=== PATIENT | female | born 1945 | race Caucasian/White ===

== ENCOUNTER 2017-07-21 19:57 | Inpatient (IN) | payer MEDICARE, MEDICAID ==
[~2017-07-21] VITALS: Ht 167.6 cm; Wt 71.2 kg
[2017-07-21] MEDS: HALOPERIDOL LACTATE INJ 5 MG/ML VIAL IM ONE (20:00)
[2017-07-21] MEDS: LORAZEPAM INJ 2 MG/ML VIAL IM ONE (20:00)
[2017-07-21] MEDS: diphenhydrAMINE HCL 50 MG/ML VIAL IM ONE (20:00)
--- NOTE | 2017-07-21 20:05 | NUR ---
PT BIB [employer], PT PLACED ON A 5150 HOLD FOR GRAVELY DISABLED, NAD NOTED, VSS, RESP EVEN AND UNLABORED. WAITING FOR MD JENSEN.
[2017-07-21 20:30] LABS: BASOPHILS % (AUTO) 0.5 % (0.0-2.0); EOSINOPHILS # (AUTO) 0.1 /CMM (0.0-0.7); EOSINOPHILS % (AUTO) 0.8 % (0.0-6.0); HEMATOCRIT 39 % (33-45); HEMOGLOBIN 13.3 g/dL (11.5-14.8); LYMPHOCYTES # (AUTO) 1.5 /CMM (0.8-4.8); LYMPHOCYTES % (AUTO) 15.2 % (20.0-44.0); MEAN CORPUSCULAR HEMOGLOBIN 30 PG (26.0-33.0); MEAN CORPUSCULAR HGB CONC 35 g/dl (31.0-36.0); MEAN CORPUSCULAR VOLUME 88 fL (82-100); MONOCYTES # (AUTO) 0.5 /CMM (0.1-1.30); MONOCYTES % (AUTO) 5.3 % (2.0-12.0); NEUTROPHILS # (AUTO) 7.8 /CMM (1.8-8.9); NEUTROPHILS % (AUTO) 78.2 % (43.0-81.0); PLATELET COUNT (AUTO) 324 /CMM (150-450); RDW COEFFICIENT OF VARIATION 12.6 (11.5-15.0); RED BLOOD CELL COUNT(AUTO) 4.38 MIL/uL (4.0-5.2); WHITE BLOOD COUNT (AUTO) 9.9 K/uL (4.3-11.0)
[2017-07-21 20:49] LABS: CALCIUM, SERUM 9.3 mg/dL (8.5-10.1); CARBON DIOXIDE 26 mmol/L (21-32); CHLORIDE 96 mmol/L (98-107); CREATININE 0.8 mg/dL (0.6-1.3); GLUCOSE 103 mg/dL (74-106); POTASSIUM 4.2 mmol/L (3.5-5.1); SODIUM SERUM 131 mmol/L (136-145); UREA NITROGEN, BLOOD 13 mg/dL (7-18)
[2017-07-21 20:55] LABS: ALANINE AMINOTRANSFERASE 30 U/L (12-78); ALBUMIN 3.8 g/dL (3.4-5.0); ALCOHOL, BLOOD < 3 mg/dL (0-0); ALKALINE PHOSPHATASE 76 U/L (46-116); ASPARTATE AMINOTRANSFERASE 38 U/L (15-37); BILIRUBIN,DIRECT 0.2 mg/dL (0.0-0.2); TOTAL PROTEIN, SERUM 7.2 g/dL (6.4-8.2)
[2017-07-21 20:56] LABS: TROPONIN I 0.026 ng/mL (0.00-0.056)
--- NOTE | 2017-07-21 20:56 | NUR ---
CALLED NURSING SUP. FOR GPS BED
[2017-07-21 21:03] LABS: THYROID STIMULATING HORMONE 0.825 uIU/mL (0.358-3.74)
--- NOTE | 2017-07-21 21:08 | NUR ---
PT REFUSED THE EKG, AWARE
--- NOTE | 2017-07-21 21:08 | NUR ---
PT UNABLE TO URINATE AT THIS MOMENT WILL TRY AGAIN IN 10 MINS.
--- NOTE | 2017-07-21 21:43 | NUR ---
UNABLE TO OBTAIN URINE SAMPLE, AWARE
--- NOTE | 2017-07-21 21:48 | NUR ---
REPORT GIVEN TO ALICE.
[2017-07-21 22:00] VITALS: BP 152/64
[2017-07-21] MEDS ORDERED: MAG HYDROX/AL HYDROX/SIMETH 30 ML UDC PO PRN (22:30)
[2017-07-21] MEDS ORDERED: MAGNESIUM HYDROXIDE 30 ML UDC PO PRN (22:30)
[2017-07-22] MEDS ORDERED: LEVE500T9 PO (00:20)
[2017-07-22] MEDS ORDERED: IBUP-1953 PO (00:20)
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
[2017-07-22 06:39] VITALS: BP 152/64
[2017-07-22 08:00] VITALS: BP 146/74
[2017-07-22] MEDS: LEVETIRACETAM (250 MG) 250 MG TABLET PO SCH ×3 (09:00→21:00)
--- NOTE | 2017-07-22 09:00 | NUR ---
rn notes patient a/o x 2, get irritable easily, has a disorganized thoughts, refused scheduled seizure medication, per patient medication which is administered not a Keppra, offered x3, dr Sierra aware of, continued monitoring.
--- NOTE | 2017-07-22 10:00 | NUR ---
RN NOTES PATIENT REFUSED ZYPREXA PRESCRIBED. PATIENT A/O X1/2, CONFUSED, DISORGANIZED THOUGHTS, IRRITABLE, CALL [facility]EDA NEAR TO REACH, SAFETY PRECAUTION MAINTAINED ALL THE TIME.
[2017-07-22] MEDS: OLANZAPINE 5 MG/TAB.RAPDIS PO SCH (10:30)
--- NOTE | 2017-07-22 16:03 | NUR ---
Initial Discharge Plan: Per psych evaluation pt was living in a facility 3 weeks ago and abruptly left. Pt is currently homeless. Pt does not have a architectural draftsperson to notify on face sheet and or telephone #. When asked pt denied having any support person to contact. SW will continue to discuss placement options with pt throughout her stay at [facility]. SW will ensure pt is safely and properly discharged.
[2017-07-22 16:26] VITALS: BP 156/82
--- NOTE | 2017-07-22 18:50 | NUR ---
RN NOTES PATIENT VERY ANXIOUS, PARANOID, HARD TO FOLLOW DIRECTION, YELLING, DISORGANIZED, UNKEMPT, TALKING SELF, WALKING BACK AND FORTH IN THE HALLWAY. REFUSED SCHEDULED MEDICATION. MEDICATION , CALLED DR GAINES AND LEFT MASSAGE , WAITING FOR RESPOND. CONTINUED MONITORING.
--- NOTE | 2017-07-22 19:15 | NUR ---
RN NOTES GET CALL BACK FROM Dr. GAINES NOTIFIED PATIENT CONDITION, AND GET ORDER ATIVAN 1 MG /ML IM, HALDOL 2.5 MG/ML IM, AND BENADRYL 25 MG/ML IM X1 NOW ORDER TAKEN AND CARRIED OUT.
--- NOTE | 2017-07-22 19:26 | NUR ---
RN NOTES PATIENT QUIET AT TIS TIME, ENDORSED ONCOMING NURSE AND CHARGE NURSE FOR SOWMYA.
--- NOTE | 2017-07-22 19:40 | NUR ---
GPS RN NOTE: PATIENT SITTING UP IN CHAIR IN ACTIVITIES ROOM. EASILY IRRITABLE. WILL CONTINUE TO MONITOR.
[2017-07-22] MEDS: LORAZEPAM INJ 2 MG/ML VIAL IM ONE (20:00)
[2017-07-22] MEDS: HALOPERIDOL LACTATE INJ 5 MG/ML VIAL IM ONE (20:00)
[2017-07-22] MEDS: diphenhydrAMINE HCL 50 MG/ML VIAL IM ONE (20:00)
--- NOTE | 2017-07-22 21:00 | NUR ---
GPS RN NOTE: PATIENT NOT AGITATED OR ANXIOUS AT THIS TIME. HADOLOL 2.5 IM, BENADRYL 25 MG IM, AND ATIVAN 1MG IM ORDERED. WILL CONTINUE TO MONITOR.
--- NOTE | 2017-07-22 22:00 | NUR ---
GPS RN NOTE: PATIENT REFUSED EVENING SCHEDULE MEDICATIONS. EXPLAINED RISK AND BENEFITS, BUT CONTINUES TO REFUSE. WILL CONTINUE TO MONITOR.
[2017-07-23] MEDS: IBUPROFEN 400 MG TABLET PO PRN (03:03)
[2017-07-23] MEDS: clonazePAM 0.5 MG TABLET PO PRN (03:03)
--- NOTE | 2017-07-23 03:15 | NUR ---
GPS RN NOTE: PATIENT ANXIOUS, KLONOPIN 0.5MG ORAL GIVEN PER MD ORDER. WILL CONTINUE TO MONITOR.
[2017-07-23 08:00] VITALS: BP 159/75
[2017-07-23] MEDS: LEVETIRACETAM (250 MG) 250 MG TABLET PO SCH ×3 (08:41→21:11)
[2017-07-23] MEDS: OLANZAPINE 5 MG/TAB.RAPDIS PO SCH (08:41)
--- NOTE | 2017-07-23 09:00 | NUR ---
GPS/RN PATIENT ADAMANTLY REFUSED KEPPRA 500 MG AND ZYPREXA 5MG X 3, EXPLAINED RISKS AND BENEFITS, CONTINUES TO REFUSE, WILL CONTINUE TO ENCOURAGE TO COMPLY WITH MD REGIMEN.
[2017-07-23 16:00] VITALS: BP 163/88
[2017-07-23 20:00] VITALS: BP 152/78
[2017-07-24] MEDS: TEMAZEPAM 7.5 MG CAPSULE PO PRN (00:08)
[2017-07-24] MEDS: clonazePAM 0.5 MG TABLET PO PRN ×2 (00:31→13:40)
--- NOTE | 2017-07-24 00:31 | NUR ---
GPS/RN NOTES: PATIENT IS VERY ANXIOUS AND RESTLESS. VITAL SIGNS ARE STABLE. KLONOPIN 0.5MG PO GIVEN PRN ORDER. WILL CONTINUE TO MONITOR [id number] FOR SAFETY AND BEHAVIOR.
[2017-07-24 08:27] VITALS: BP 160/87
[2017-07-24] MEDS: OLANZAPINE 5 MG/TAB.RAPDIS PO SCH ×2 (09:00→13:40)
[2017-07-24] MEDS: LEVETIRACETAM (250 MG) 250 MG TABLET PO SCH ×2 (09:33→21:10)
--- NOTE | 2017-07-24 13:43 | NUR ---
NURSING NOTE PT WAS GIVEN CLONAZEPAM 0.5 MG FOR SEVERE AGITATION, PT ALSO AGREED TO TAKE ZYPREXA 5 MG NOW BUT DECLINED IT IN AM.
[2017-07-24 17:03] VITALS: BP 141/73
--- NOTE | 2017-07-24 17:50 | NUR ---
NURSING NOTE PT REQUESTED IBUPROFEN 600 MG PO FOR 01/20 BACK PAIN, OFFERED PT MEDICATION AND PT REFUSED TO TAKE IT, STATES "THAT'S NOT IBUPROFEN, YOU'RE LYING TO ME', PT IS DELUSIONAL, PARANOID, DISORGANIZED, CONFUSED, EASILY AGITATED. WILL CONTINUE TO MONITOR FOR SAFETY.
[2017-07-24 19:57] VITALS: BP 157/95
[2017-07-25] MEDS: clonazePAM 0.5 MG TABLET PO PRN (03:12)
--- NOTE | 2017-07-25 03:12 | NUR ---
GPS RN NOTES: PATIENT VERY AGITATED, CONFUSED, DISORGANIZED THOUGHTS, V/S ARE STABLE, ADMINISTERED KLONOPIN 0.5MG PO PRN ORDER. WILL CONTINUE TO MONITOR [id number] FOR SAFETY AND BEHAVIOR.
[2017-07-25 08:00] VITALS: BP 144/98
[2017-07-25] MEDS: LEVETIRACETAM (250 MG) 250 MG TABLET PO SCH ×2 (08:50→20:07)
--- NOTE | 2017-07-25 09:56 | NUR ---
Discharge Planning: SW attempted to meet with pt in order to discuss placement options once she is ready to discharge. Pt however was irate and and yelled at SW to get out. SW will attempt to engage pt in a conversation about placement during the week. SW will ensure pt is safely and adequately discharged.
[2017-07-25 16:00] VITALS: BP 145/91
[2017-07-25 19:55] VITALS: BP 160/73
[2017-07-25] MEDS: IBUPROFEN 400 MG TABLET PO PRN (20:13)
[2017-07-25] MEDS: TEMAZEPAM 7.5 MG CAPSULE PO PRN (23:16)
[2017-07-26] MEDS: ACETAMINOPHEN 325 MG TABLET PO PRN (02:03)
[2017-07-26] MEDS: clonazePAM 0.5 MG TABLET PO PRN ×3 (02:04→23:47)
[2017-07-26 08:00] VITALS: BP 130/62
[2017-07-26] MEDS: IBUPROFEN 400 MG TABLET PO PRN ×2 (09:00→21:38)
[2017-07-26] MEDS: LEVETIRACETAM (250 MG) 250 MG TABLET PO SCH ×2 (11:33→21:06)
[2017-07-26] MEDS: OLANZAPINE 5 MG/TAB.RAPDIS PO SCH (11:34)
[2017-07-26 16:00] VITALS: BP 150/79
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
[2017-07-26 20:36] VITALS: BP 153/62
[2017-07-26] MEDS: OLANZAPINE 2.5 MG TABLET PO SCH (21:06)
[2017-07-26] MEDS: TEMAZEPAM 7.5 MG CAPSULE PO PRN (21:25)
--- NOTE | 2017-07-26 21:38 | NUR ---
GPS RN NOTES: PATIENT C/O PAIN ON HER LEFT ANKLE, PATIENT RATES 7/10. ADMINISTERED MOTRIN 600MG PO PRN ORDER, WILL CONTINUE TO MONITOR AND ASSESS FOR PAIN.
--- NOTE | 2017-07-26 23:53 | NUR ---
GPS RN NOTES: PATIENT IS VERY ANXIOUS, AGITATED. VITAL SIGNS ARE STABLE. ADMINISTERED KLONOPIN 0.5MG PO PRN ORDER. WILL CONTINUE TO MONITOR [id number] FOR SAFETY AND BEHAVIOR.
[2017-07-27] MEDS: ACETAMINOPHEN 325 MG TABLET PO PRN (00:50)
[2017-07-27 08:00] VITALS: BP 140/78
[2017-07-27] MEDS: OLANZAPINE 5 MG/TAB.RAPDIS PO SCH ×2 (09:00→09:29)
[2017-07-27] MEDS: LEVETIRACETAM (250 MG) 250 MG TABLET PO SCH ×2 (09:22→21:34)
[2017-07-27] MEDS: IBUPROFEN 400 MG TABLET PO PRN (09:24)
--- NOTE | 2017-07-27 10:01 | NUR ---
Discharge Planning: NIRALI visited pt in her room to discuss placement options. Pt once again was irate and yelled at SW to get out. Pt also yelled, "I don't want you to send me anywhere." SW will follow up with pt and treating team to discuss placement options once she is discharged.
--- NOTE | 2017-07-27 12:38 | NUR ---
PATIENT STATES SHES IN PAIN. MOTRIN GIVEN
--- NOTE | 2017-07-27 15:52 | NUR ---
RN NOTE: PATIENT HAD BLOOD PRESSURE OF 189/106. CALLED [facility]OLOG[facility] FACULT[employer] MEMBER MAGDALENE BROWN AND NOTIFIED HIM OF THE BLOOD PRESSURE. KEVIN SAID HE WILL PUT THE ORDER IN FOR BP MED.
[2017-07-27 16:10] VITALS: BP 189/106
[2017-07-27] MEDS ORDERED: CLONIDINE HCL 0.1 MG TABLET PO PRN (17:00)
--- NOTE | 2017-07-27 17:00 | NUR ---
RN NOTE: PATIENT BP IS 189/106. CLONIDINE 0.1MG GIVEN
--- NOTE | 2017-07-27 17:09 | NUR ---
RN NOTE: PATIENT DENIED THE CLONIDINE. OFFERED 3X. PATIENT IS PARANOID AND THINKS THIS IS NOT THE BLOOD PRESSURE MEDICATION.
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
[2017-07-27] MEDS ORDERED: OLANZAPINE 10 MG VIAL IM STA (18:12)
[2017-07-27] MEDS ORDERED: LORAZEPAM INJ 2 MG/ML VIAL IM STA (18:12)
--- NOTE | 2017-07-27 18:49 | NUR ---
RN NOTE: PATIENT WAS VERY AGGRESSIVE TOWARDS STAFF AND OTHER PATIENTS. PATIENT WAS GOING INTO OTHER PATIENT ROOMS AND TOUCHING BELONGINGS. THE DOCTOR WAS CALLED AND ZYPREXA 5MG AND ATIVAN 1MG WAS ORDERED. ZYPREXA AND ATIVAN GIVEN.
[2017-07-27 20:23] VITALS: BP 132/76
[2017-07-27] MEDS: OLANZAPINE 2.5 MG TABLET PO SCH (21:36)
[2017-07-28 06:58] LABS: CALCIUM, SERUM 9.1 mg/dL (8.5-10.1); CARBON DIOXIDE 28 mmol/L (21-32); CHLORIDE 107 mmol/L (98-107); CREATININE 0.7 mg/dL (0.6-1.3); GLUCOSE 89 mg/dL (74-106); POTASSIUM 4.1 mmol/L (3.5-5.1); SODIUM SERUM 142 mmol/L (136-145); UREA NITROGEN, BLOOD 11 mg/dL (7-18)
[2017-07-28 08:00] VITALS: BP 153/81
[2017-07-28] MEDS: LEVETIRACETAM (250 MG) 250 MG TABLET PO SCH ×2 (08:27→21:27)
[2017-07-28] MEDS: OLANZAPINE 5 MG/TAB.RAPDIS PO SCH (08:27)
--- NOTE | 2017-07-28 09:43 | NUR ---
Discharge Planning: NIRALI Hadley attempted to have a conversation with patient regarding discharge. Patient became agitated and stated, "we are not talking about that." Patient walked away from and was unwilling to participate in discussion regarding placement.
--- NOTE | 2017-07-28 09:58 | NUR ---
Discharge Planning: SW faxed [facility], [address] [facility] [address]; and fax # pts inquiry (face sheet, medical H&P, P&P and medication list) as pt may need placement upon discharge. Per CJ from [facility], pt was accepted and can discharge to facility if placement is needed. NIRALI will discuss with pt.
[2017-07-28 16:00] VITALS: BP 175/88
--- NOTE | 2017-07-28 16:30 | NUR ---
GPS/RN-NOTES NOTED PATIENT WITH B/P OF 175/88,PULSE 99. OFFERED CLONIDINE 0.1MG P.O BUT PATIENT REFUSED. STATED" I DON'T TAKE ANY OF THOSE MEDICATIONS,LEAVE ME ALONE". EXPLAINED RISK AND BENEFITS BUT PATIENT GETS ANGRY AND YELLS AT THE DEDENTER. CHARGE NURSE AWARE.
[2017-07-28 20:00] VITALS: BP 122/66
[2017-07-28] MEDS: OLANZAPINE 2.5 MG TABLET PO SCH (21:31)
[2017-07-28] MEDS: TEMAZEPAM 7.5 MG CAPSULE PO PRN (21:32)
--- NOTE | 2017-07-28 21:32 | NUR ---
RESTORIL 7.5 MG CAP 1 PO GIVEN FOR SLEEP.
[2017-07-28] MEDS: IBUPROFEN 400 MG TABLET PO PRN (22:06)
--- NOTE | 2017-07-28 22:06 | NUR ---
MOTRIN 600 MG TAB PO GIVEN FOR PAIN BOTH LOWER LEGS.
--- NOTE | 2017-07-28 22:34 | NUR ---
PATIENT STILL AWAKE. WILL CONTINUE TO OBSERVE
--- NOTE | 2017-07-29 04:56 | NUR ---
PATIENT REFUSED TO HAVE KLONOPIN, OFFERED 2X STILL REFUSED, STATED, " I DON'T WANT IT."
[2017-07-29 08:39] VITALS: BP 130/80
[2017-07-29] MEDS: LEVETIRACETAM (250 MG) 250 MG TABLET PO SCH ×2 (08:52→21:31)
[2017-07-29] MEDS: OLANZAPINE 5 MG/TAB.RAPDIS PO SCH (08:52)
[2017-07-29 16:18] VITALS: BP 163/93
[2017-07-29] MEDS: clonazePAM 0.5 MG TABLET PO PRN (21:31)
[2017-07-29] MEDS: OLANZAPINE 2.5 MG TABLET PO SCH (21:31)
[2017-07-29] MEDS: TEMAZEPAM 7.5 MG CAPSULE PO PRN (21:32)
[2017-07-30] MEDS: LEVETIRACETAM (250 MG) 250 MG TABLET PO SCH ×2 (09:33→21:40)
[2017-07-30] MEDS: OLANZAPINE 5 MG/TAB.RAPDIS PO SCH (09:33)
[2017-07-30] MEDS: clonazePAM 0.5 MG TABLET PO PRN (20:54)
[2017-07-30] MEDS: TEMAZEPAM 7.5 MG CAPSULE PO PRN (21:40)
[2017-07-30] MEDS: OLANZAPINE 2.5 MG TABLET PO SCH (21:40)
[2017-07-31] MEDS: OLANZAPINE 5 MG/TAB.RAPDIS PO SCH (08:50)
[2017-07-31] MEDS: LEVETIRACETAM (250 MG) 250 MG TABLET PO SCH ×2 (08:50→21:12)
[2017-07-31] MEDS: clonazePAM 0.5 MG TABLET PO PRN (14:36)
--- NOTE | 2017-07-31 14:36 | NUR ---
[id number]: GAVE KLONOPIN 0.5 MG PO DUE TO SEVERE ANXIETY UPON PT REQUEST AND WILL CONTINUE TO MONITOR FOR EFFECTIVENESS OF MEDICATION
[2017-07-31 15:46] VITALS: BP 121/79
--- NOTE | 2017-07-31 20:21 | NUR ---
GPS RN NOTES AT 1999 PT. REFUSED VITAL SIGNS AND PT. REFUSED WEEKLY SKIN REASSESSMENT PICTURES , ENCOURAGED EXPLAINED RISKS AND BENEFITS , STILL REFUSED
[2017-07-31] MEDS: OLANZAPINE 2.5 MG TABLET PO SCH (21:13)
[2017-07-31 23:00] VITALS: BP 125/76
[2017-07-31] MEDS: TEMAZEPAM 7.5 MG CAPSULE PO PRN (23:59)
[2017-08-01 08:00] VITALS: BP 150/96
[2017-08-01] MEDS: LEVETIRACETAM (250 MG) 250 MG TABLET PO SCH ×2 (08:48→21:19)
[2017-08-01] MEDS: OLANZAPINE 5 MG/TAB.RAPDIS PO SCH (08:49)
[2017-08-01] MEDS: DIVALPROEX SODIUM 125 MG CAP.SPRINK PO SCH ×3 (11:53→19:00)
[2017-08-01 20:31] VITALS: BP 121/85
[2017-08-01] MEDS: OLANZAPINE 5 MG TABLET PO SCH (21:20)
[2017-08-01] MEDS: TEMAZEPAM 7.5 MG CAPSULE PO PRN (23:09)
[2017-08-02] MEDS: DIVALPROEX SODIUM 125 MG CAP.SPRINK PO SCH ×3 (08:38→18:33)
[2017-08-02] MEDS: OLANZAPINE 5 MG TABLET PO SCH ×2 (08:39→21:02)
[2017-08-02] MEDS: LEVETIRACETAM (250 MG) 250 MG TABLET PO SCH ×2 (08:39→20:56)
[2017-08-02] MEDS: IBUPROFEN 400 MG TABLET PO PRN ×2 (09:01→13:20)
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
[2017-08-02 20:11] VITALS: BP 109/71
[2017-08-02] MEDS: clonazePAM 0.5 MG TABLET PO PRN (21:19)
--- NOTE | 2017-08-02 21:19 | NUR ---
GPS RN NOTES: NOTED PATIENT VERY ANXIOUS, UNABLE TO SIT STILL, AGITATED. VITAL SIGNS ARE STABLE. ADMINISTERED KLONOPIN 0.5MG PO PRN ORDER, WILL CONTINUE MONITORING [id number] FOR SAFETY AND BEHAVIOR.
[2017-08-03] MEDS: IBUPROFEN 400 MG TABLET PO PRN ×2 (02:02→10:16)
[2017-08-03] MEDS: clonazePAM 0.5 MG TABLET PO PRN (02:25)
--- NOTE | 2017-08-03 02:27 | NUR ---
GPS RN NOTES: NOTED PATIENT VERY ANXIOUS, RESTLESS AND AGITATED. VITAL SIGNS ARE STABLE. ADMINISTERED KLONOPIN 0.5MG PO PRN ORDER, WILL CONTINUE MONITORING [id number] FOR SAFETY AND BEHAVIOR.
[2017-08-03 08:46] VITALS: BP 142/64
[2017-08-03] MEDS: LEVETIRACETAM (250 MG) 250 MG TABLET PO SCH ×2 (09:35→20:01)
[2017-08-03] MEDS: DIVALPROEX SODIUM 125 MG CAP.SPRINK PO SCH ×2 (09:36→18:01)
[2017-08-03] MEDS: OLANZAPINE 5 MG TABLET PO SCH ×2 (09:37→21:13)
[2017-08-03 16:38] VITALS: BP 150/83
[2017-08-03 20:40] VITALS: BP 142/68
[2017-08-03] MEDS: TEMAZEPAM 7.5 MG CAPSULE PO PRN (21:36)
[2017-08-04] MEDS: IBUPROFEN 400 MG TABLET PO PRN ×2 (00:02→21:26)
--- NOTE | 2017-08-04 00:03 | NUR ---
GPS RN NOTES: GPS RN NOTES: PATIENT C/O BILATERAL LOWER LEG PAIN. PATIENT RATES 4/10. V/S ARE STABLE. IBUPROFEN 600MG PO GIVEN PRN ORDER, WILL CONTINUE TO MONITOR AND ASSESS FOR PAIN.
[2017-08-04 08:02] VITALS: BP 120/70
[2017-08-04] MEDS: DIVALPROEX SODIUM 125 MG CAP.SPRINK PO SCH (08:14)
[2017-08-04] MEDS: LEVETIRACETAM (250 MG) 250 MG TABLET PO SCH ×2 (08:14→20:34)
[2017-08-04] MEDS: OLANZAPINE 5 MG TABLET PO SCH (08:16)
[2017-08-04 16:00] VITALS: BP 110/69
[2017-08-04 20:00] VITALS: BP 148/69
[2017-08-04] MEDS: TEMAZEPAM 7.5 MG CAPSULE PO PRN (21:17)
--- NOTE | 2017-08-04 21:28 | NUR ---
2117: PATIENT REQUESTED FOR HER SLEEPING PILL, TEMAZEPAM 7.5 MG CAP 1 PO GIVEN.
--- NOTE | 2017-08-04 21:29 | NUR ---
2126: PATIENT C/O PAIN ON BOTH LEGS, 4/5 ON PAIN SCALE, MOTRIN SHIN 600 MG PO GIVEN.
[2017-08-04] MEDS ORDERED: OLANZAPINE 5 MG TABLET PO SCH (22:00)
--- NOTE | 2017-08-04 22:17 | NUR ---
PATIENT STILL AWAKE, AFTER TAKING RESTORIL. WILL MONITOR.
[2017-08-05 08:23] VITALS: BP 151/78
[2017-08-05] MEDS: OLANZAPINE 5 MG TABLET PO SCH (08:31)
[2017-08-05] MEDS: LEVETIRACETAM (250 MG) 250 MG TABLET PO SCH (08:31)
[2017-08-05] MEDS: DIVALPROEX SODIUM 125 MG CAP.SPRINK PO SCH ×2 (09:19→12:53)
--- NOTE | 2017-08-05 09:58 | NUR ---
DR. GAINES GAVE AND ORDER TO D/C HOLD AND [facility] AND TO CONTINUE SAME MEDS INCLUDING PRN. Addendum: 08/05/17 at 1436 by MIRI CARD RN PT. IS FOR DISCHARGE TO [facility].
--- NOTE | 2017-08-05 16:23 | NUR ---
GPS HEALTH COORDINATOR NOTE; PATIENT DISCHARGE TO [facility] ,[address] . [facility] [phone] VIA AMBULANCE IN STABLE CONDITION, PT AMBULATORY SELF CARE, DENIES SI/HI COMPLIANT WITH MEDICATIONS AND TX NO S/S DISTRESS NOTED. DR GAINES DC HOLD DC TO SNF. N.Ophelia WALL T.O. ORDER TO CONTINUE MEDICATIONS. EXIT CARE DONE PRINTED PT REFUSED TO SIGN DC PAPERS AND REFUSED SKIN ASSESSMENT. ALL BELONGINGS AND VALUABLES RETURNED TO PT, PT REFUSED TO SIGN BELONGING LIST. REPORT GIVEN TO FACILITY RN.
--- NOTE | 2017-08-05 18:40 | NUR ---
Discharge Note: Patient will be discharged to [facility], [address] [facility] [[email or web address] [id number]; via ambulance (trip # [id number]) at 3:30 pm. Pt has been notified. Pt has no family to notify. Pts Wrap Checker will be Dr. Wood Bennett, [address] [facility] [address]; and Psychiatrist will be Dr. Hamilton, [address] [place] [address]; .
== END 2017-08-05 16:20 | DRG 885 ==
LOC: ER 19:59 → GPS 21:39
PROVIDERS: ADMIT Psychiatry & Neurology Psychiatry; ATTEND Psychiatry & Neurology Psychiatry
DX: F20.0 Paranoid schizophrenia (principal); E87.1 Hypo-osmolality and hyponatremia; F03.90 Unspecified dementia, unspecified severity, without behavioral disturbance, psychotic disturbance, mood disturbance, and anxiety; G40.909 Epilepsy, unspecified, not intractable, without status epilepticus; F32.9 Major depressive disorder, single episode, unspecified; F29 Unspecified psychosis not due to a substance or known physiological condition; Z73.6 Limitation of activities due to disability; F41.9 Anxiety disorder, unspecified; I10 Essential (primary) hypertension
CPT/HCPCS: 36415; 80048-TC; 80076-TC; 84443-TC; 84484-TC; 85025-TC; 87081-TC; A4606; G0480; J2060; J3490; Z7610